=== PATIENT | male | born 1995 | race Caucasian/White ===

== ENCOUNTER 2025-01-11 18:54 | Emergency (ER) | payer BC, SELFPAY ==
[2025-01-11] VITALS (12 sets, daily range): BP systolic 123–179; BP diastolic 65–90; PULSE 86–99; TEMP 36.4; O2SAT 97–100; BMI 43.0
--- NOTE | 2025-01-11 19:06 | PC.NURSE ---
Patient reports nausea starting a couple hours ago. also c/o indigestion
--- NOTE | 2025-01-11 19:09 | XR_ITS ---
[facility] [place] [id number] Patient Name: CHANDLER BANKS MRN: [id number] date: 1995 Sex: M Assigned Patient Location: ER Current Patient Location: ER Accession/Order Number: [id number] Exam Date: 01/11/2025 19:10 Report Date: 01/11/2025 19:33 At the request of: MARLON LLOYD Procedure: XR chest 1V PA CHEST: CLINICAL HISTORY: Weakness COMPARISON: None The heart is normal in size. The lungs are clear. The pulmonary vasculature is normal. Mediastinum and hilar regions are unremarkable. No pleural effusions are seen. Visualized bones are intact. XR/XR chest 1V IMPRESSION: NEGATIVE CHEST. Impression dictated by: Nito Lance M.D. 01/11/2025 7:33 PM Dictation Location: [place] [address] Electronically authenticated by: [id number] Y Date: 01/11/2025 19:33
--- NOTE | 2025-01-11 19:09 | ECG_ITS ---
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 Measurements Intervals [place] Rate: 99 P: 73 VA: 112 QRS: -32 QRSD: 112 T: 31 QT: 352 QTc: 408 Interpretive Statements 1100 Sinus rhythm 1102 Sinus arrhythmia 2210 Short VA interval 2440 Incomplete right bundle branch block 5211 Minimal voltage criteria for LVH, may be normal variant 7200 Abnormal left axis deviation 9150 abnormal ECG No previous ECG available for comparison Electronically Signed On 01-12-2025 7:49:39 EST by ISABELLA MAGALLANES M.D.
--- NOTE | 2025-01-11 19:10 | ED.GENADUL1 ---
HPI HPI - General Adult General Chief complaint: Nausea/Vomiting/Diarrhea Stated complaint: NAUSEAUS, LIGHT HEADED, SHAKING Time Seen by Provider: 01/11/25 19:02 Source: patient Mode of arrival: walk-in Limitations: no limitations History of Present Illness HPI narrative: 29 year old male presents to the ED for lightheadedness, nausea. Reports mild episodes over the past few days; it became worse today. Denies fever, chills, RAY, vision changes. Denies CP, SOB, abd pain, diarrhea. Reports heartburn. Denies dizziness. Denies a spinning sensation. He is accompanied by family. Related Data Previous Rx's ?Medication ?Instructions ?Recorded ondansetron 4 mg disintegrating 4 mg PO DAILY PRN nausea and 01/11/25 tablet vomiting 4 days #10 tabs Allergies Allergy/AdvReac Type Severity Reaction Status Date / Time No Known Drug Allergies Allergy Verified 01/11/25 19:00 Opioid HPI Opioid Management Most Recent Opioid Data: Last Pain Scale 0 Today, 19:04 Review of Systems ROS Constitutional Reports: fatigue; Denies: fever or chills Eyes Denies: change in vision Ears, nose, mouth, and throat Denies: throat pain or neck pain Cardiovascular Reports: lightheadedness; Denies: chest pain or palpitations Respiratory Denies: shortness of breath or cough Gastrointestinal Reports: nausea; Denies: abdominal pain, vomiting or diarrhea Genitourinary Denies: painful urination Musculoskeletal Denies: back pain or neck pain Neurological Reports: dizziness; Denies: headache, numbness in extremities or weakness in extremities [facility] Medical History (Updated 01/11/25 @ 20:49 by Linda Traylor) No pertinent past psychiatric history No pertinent past medical history ?Z78.9 - Other specified health status (ICD-10) Surgical History (Updated 01/11/25 @ 19:08 by Sue Walker) No pertinent past surgical history ?Z78.9 - Other specified health status (ICD-10) Social History Little interest or pleasure in doing things: not at all Feeling down, depressed, or hopeless: not at all Exam Constitutional Vital Signs, click to edit/add: Last Vital Signs Temp 97.6 F 01/11/25 18:56 Pulse 86 01/11/25 20:04 Resp 16 01/11/25 20:04 BP 140/65 01/11/25 20:04 Pulse Ox 100 01/11/25 20:04 O2 Del Method Room Air 01/11/25 18:56 Common normals: no apparent distress and oriented x3 General appearance: cooperative HENMT Common normals: moist oral mucous membranes Eye Common normals: PERRL, EOMs intact bilaterally, conjunctivae normal and no scleral icterus Neck & C-Spine Common normals: supple Chest Chest: symmetrical chest wall rise Respiratory Common normals: normal respiratory effort and clear to auscultation bilaterally Effort & inspection: able to speak in complete sentences and symmetric chest movement Cardio Common normals: regular rate and regular rhythm GI Common normals: Normal to inspection, nondistended, normoactive bowel sounds present, soft to palpation and non-tender Neuro Common normals: oriented x3, CN's II-XII intact bilaterally, moves all extremities and no focal motor deficits Sensorium/orientation: awake and alert Speech: speech normal Course Vital Signs Vital signs: Vital Signs Temperature 97.6 F 01/11/25 18:56 Pulse Rate 92 H 01/11/25 18:56 Respiratory Rate 20 01/11/25 18:56 Blood Pressure 179/90 H 01/11/25 18:56 Pulse Oximetry 100 01/11/25 18:56 Oxygen Delivery Method Room Air 01/11/25 18:56 Temperature 97.6 F 01/11/25 18:56 Pulse Rate 86 01/11/25 20:04 Respiratory Rate 16 01/11/25 20:04 Blood Pressure 140/65 01/11/25 20:04 Pulse Oximetry 100 01/11/25 20:04 Oxygen Delivery Method Room Air 01/11/25 18:56 Medical Decision Making MDM Narrative Medical decision making narrative: CBC, CMP, and troponin were unremarkable. Chest x-ray was negative for acute findings. Findings were discussed. A prescription was provided for Zofran. He was given IV fluids and Zofran here. Follow up with pcp for a recheck, further evaluation and treatment. Return to the ED for worsening symptoms. Medical Records Medical records reviewed: Yes I reviewed the patient's medical records Lab Data Lab results reviewed: Yes I reviewed the patient's lab results Labs: Lab Results 01/11/25 Range/Units 19:42 WBC 10.2 (4.0-11.0) 10^3/uL RBC 5.32 (4.70-6.10) 10^6/uL Hgb 14.9 (14.0-18.0) g/dL Hct 42.7 (42.0-54.0) % MCV 80.3 (80.0-94.0) fL MCH 28.0 (25.9-34.0) pg MCHC 34.9 (29.9-35.2) g/dL RDW 13.2 (11.0-15.0) % Plt Count 268 (150-450) 10^3/uL MPV 10.4 (9.5-13.5) fL Neut % (Auto) 65.8 (43.0-75.0) % Lymph % (Auto) 25.9 (20.5-60.0) % Morton % (Auto) 6.2 (1.7-12.0) % Eos % (Auto) 1.0 (0.9-7.0) % Baso % (Auto) 0.6 (0.2-2.0) % Neut # (Auto) 6.7 H (1.4-6.5) 10^3/uL Lymph # (Auto) 2.6 (1.2-3.8) 10^3/uL Morton # (Auto) 0.6 (0.3-0.8) 10^3/uL Eos # (Auto) 0.1 (0.0-0.7) 10^3/uL Baso # (Auto) 0.1 (0.0-0.1) 10^3/uL Abs Immat Gran (auto) 0.05 H (0.00-0.03) 10^3/uL Imm/Tot Granulo (auto) 0.5 (0.0-0.5) % Sodium 141 (136-145) mmol/L Potassium 3.5 (3.5-5.1) mmol/L Chloride 106 (98-107) mmol/L Carbon Dioxide 27.4 (21.0-32.0) mmol/L Anion Gap 11.1 BUN 11.0 (7.0-18.0) mg/dL Creatinine 1.03 (0.70-1.30) mg/dL Est GFR ( Amer) >60 (>=60 mL/min/1.73m^2) Est GFR (Non-Af Amer) >60 (>=60 mL/min/1.73m^2) BUN/Creatinine Ratio 10.7 Glucose 115 H (74-106) mg/dL Calcium 9.0 (8.5-10.1) mg/dL Total Bilirubin 0.4 (0.2-1.0) mg/dL ALT 80 H (16-63) U/L Alkaline Phosphatase 110 (46-116) U/L Troponin I High Sens 16.2 (4.0-76.1) pg/mL Total Protein 7.9 (6.4-8.2) g/dL Albumin 3.9 (3.4-5.0) g/dL Globulin 4.0 g/dL Albumin/Globulin Ratio 1.0 Imaging Data Chest x-ray: Attestation: I have reviewed the pertinent imaging results. Radiologist's impression: ITS Impressions Chest X-Ray 01/11/25 19:09 IMPRESSION: NEGATIVE CHEST. Impression dictated by: Nito Lance M.D. 01/11/2025 7:33 PM Dictation Location: [place] [address] Electronically authenticated by: [id number] Y Date: 01/11/2025 19:33 ECG Data Attestation: ?I have reviewed the pertinent ECG results. (EKG was reviewed by the attending physician. It showed sinus rhythm at a rate of 99. Incomplete RBBB.) Interpretation: Measurements Intervals [place] Rate: 99 P: 73 ME: 112 QRS: -32 QRSD: 112 T: 31 QT: 352 QTc: 408 Interpretive Statements 1100 Sinus rhythm 1102 Sinus arrhythmia 2210 Short [place] interval 2440 Incomplete right bundle branch block 5211 Minimal voltage criteria for LVH, may be normal variant 7200 Abnormal left axis deviation 9150 abnormal ECG No previous ECG available for comparison Discharge Plan Discharge Chief Complaint: Nausea/Vomiting/Diarrhea Clinical Impression: Lightheadedness, Nausea Patient Disposition: Home, Self-Care Condition: Good Mode of Transportation: Private Vehicle Prescriptions / Home Meds: New ondansetron 4 mg tablet,disintegrating 4 mg PO DAILY PRN (Reason: nausea and vomiting) 4 Days Qty: 10 0RF Print Language: Citizen Of [place] Instructions: Acute Nausea and Vomiting (ED), Lightheadedness (ED) Additional Instructions: Return to the ED for worsening symptoms. Referrals: Physician,Non-Staff, MD [Primary Care Provider] - 1 week
[2025-01-11 19:53] LABS: Hematocrit 42.7 % (42.0-54.0); Hemoglobin 14.9 g/dL (14.0-18.0); Immature Granulocytes Abs Auto 0.05 10^3/uL (0.00-0.03); Immature Granulocytes Pct Auto 0.5 % (0.0-0.5); Lymphocytes Absolute Auto 2.6 10^3/uL (1.2-3.8); Mean Corpuscular HGB Conc 34.9 g/dL (29.9-35.2); Mean Corpuscular Hemoglobin 28.0 pg (25.9-34.0); Mean Corpuscular Volume 80.3 fL (80.0-94.0); Platelet Count 268 10^3/uL (150-450); Red Blood Count 5.32 10^6/uL (4.70-6.10); White Blood Count 10.2 10^3/uL (4.0-11.0)
[2025-01-11] MEDS: 0.9 % SODIUM CHLORIDE 1,000 ML 999 ML IV (20:00)
[2025-01-11 20:11] LABS: Albumin Globulin Ratio 1.0; Albumin Level 3.9 g/dL (3.4-5.0); Alkaline Phosphatase 110 U/L (46-116); Anion Gap 11.1; Blood Urea Nitrogen 11.0 mg/dL (7.0-18.0); Calcium 9.0 mg/dL (8.5-10.1); Carbon Dioxide 27.4 mmol/L (21.0-32.0); Chloride 106 mmol/L (98-107); Estimated GFR (African America >60 (>=60 mL/min/1.73m^2); Estimated GFR (Non-African Ame >60 (>=60 mL/min/1.73m^2); Globulin 4.0 g/dL; Potassium 3.5 mmol/L (3.5-5.1); Sodium 141 mmol/L (136-145); Total Protein 7.9 g/dL (6.4-8.2)
--- OUTSIDE RECORDS SUMMARY | 2025-01-11 20:21 | XMS_ITS | Patient Health Record ---
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 Yes How often did you have a drink containing alcohol in the past year?2 to 4 times a month (2 points)How many drinks did you have on a typical day when you were drinking in the past year?3 or 4 drinks (1 point)How often did you have six or more drinks on one occasion in the past year?2 to 4 times a month (2 points) [id number] Problems Problem Type SNOMED Code ICD Code Onset Dates Problem Status W/U Status Risk Notes Problem Elevated blood press ure reading without diagnosis of hypertension (623674048) Borderline hypertension (R03.0) ActiveconfirmedProblemWell adult (025379455)Well adult (Z00.00)Activeconfirmed ProblemNear syncope (482635915)Near syncope (R55)Activeconfirmed Vital Signs Blood pressure diastolic 92 mm Hg 11/01/2024 Opcrxt19 in11/01/2024lood pressure nfnawrqv667 mm Hg11/01/20247615Dsfgpc300.0 lbs 11/01/2024BMI42.9 kg/m211/01/2024 Encounters Encounter Location Date Provider Diagnosis [facility] [address] [place] [address] 11/01/2024 Jossue Jean Borderline hypertens ion R03.0 ; Near syncope R55 and Well adult Z00.00 Assessments Encounter Date Diagnosis (ICD Code) Assessment Notes Treatment Notes Treatment Clinical Notes Section Notes 11/01/2024 Borderline hypertension (ICD-10 - R03.0) 11/01/2024Near syncope (ICD-10 - R55)11/01/2024Well adult (ICD-10 - Z00.00) Plan Of Treatment Pending Test Test Name Order Date HEMOGLOBIN A1C (GLYCO) 11/01/2024 INSULIN, TOTAL 11/01/2024 LIPID PANEL (CHOL/TRIG/HDL/LDL) 11/02/19 25 THYROID PANEL (T4/TSH/FREE T3) 5 CMP (COMP MET DOSHI) w/eGFR CKD-EPI 2024 CBC WITH DIFF 11/01/2024 Insurance Providers Payer Name Payer Address Payer Phone Subscriber Number Group Number Insured Name Patient Relationship to Insured Coverage Start Date Coverage End Date [employer] [address] [place] [id number] Kaveh Harry - patient is the insured
[2025-01-11 20:23] LABS: Alanine Aminotransferase 80 U/L (16-63); Glucose 115 mg/dL (74-106)
[2025-01-11 21:09] LABS: Aspartate Amino Transferase 43 U/L (15-37)
== END 2025-01-11 21:06 | disposition home or self-care (01) ==
PROVIDERS: Nurse Practitioner Family; Emergency Provider Emergency Medicine
DX: R42 Dizziness and giddiness (principal); R11.0 Nausea
CPT/HCPCS: 36415; 71045; 80053; 84484; 85025; 93005; 96374; 99284; 99285; J2405